=== PATIENT | male | born 1970 | race Caucasian/White ===

== ENCOUNTER 2016-10-31 14:55 | Emergency (ER) | payer BC ==
[~2016-10-31] VITALS: Ht 172.7 cm; Wt 163.3 kg
[2016-10-31 15:05] VITALS: BP_SYST 147
[2016-10-31] MEDS ORDERED: LIDOCAINE 1% 10 MG/ML, 20 ML MDV INJ ONE (15:30)
[2016-10-31] MEDS ORDERED: KETOROLAC TROMETHAMINE 60 MG/2 ML VIAL IM ONE (15:30)
[2016-10-31 16:40] VITALS: BP_SYST 145
== END 2016-10-31 16:40 | disposition home or self-care (01) ==
LOC: SED 14:55
DX: N61.1 Abscess of the breast and nipple (principal); E11.9 Type 2 diabetes mellitus without complications; I10 Essential (primary) hypertension; E78.00 Pure hypercholesterolemia, unspecified
CPT/HCPCS: 81025; 96372; 99283; J1885; J2001